=== PATIENT | female | born 1970 | race Caucasian/White ===

== ENCOUNTER 2019-09-20 15:05 | Inpatient (IN) | payer BC, OTHER ==
--- NOTE | 2019-09-20 15:17 | PDOC ---
Rapid Medical Evaluation Time Seen by Provider: 09/20/19 15:12 Medical Evaluation: 09/20/19 15:13 Pt presents to the ER for 10 days of heavy vaginal bleeding and pain. She states she is changing about a pad an hour. Also reports dyspnea on exertion and feeling faint. Exam: Pale conjunctiva. AAOx3 Orders: Labs, IV, EKG Pt to proceed the ER for further evaluation Discharge Disposition - Diagnosis Vaginal bleeding - Referrals - Patient Instructions - Post Discharge Activity
--- NOTE | 2019-09-20 16:03 | PDOC ---
History of Present Illness - General Chief Complaint: Vaginal Bleeding Stated Complaint: VAGINAL BLEEDING Time Seen by Provider: 09/20/19 15:12 History Source: Patient Exam Limitations: No Limitations - History of Present Illness Initial Comments: Kell is a 49 yo F who denies having any pmh who presents to the [facility] er with one month of vaginal bleeding which has now become stronger and she is saturating a pad every 2 hours. She did not mind the bleeding originally but now it has caused her to become extremely weak and her weakness is what prompted her to come to the ER to be evaluated. She also endorses some fullness in her lower abdomen. She reports that the reason she hasn't come to the ER is because she thought it was normal to bleed. The patient states she has not actually passed out or fell down but she feels like even walking 20 feet is tiresome and she will fall down. PCP: Dr. Ac PSH: Allergies: NKA, NKDA Social Hx: Denies smoking, drinking, or other substance usage Past History - Past Medical History Allergies/Adverse Reactions: Allergies Allergy/AdvReac Type Severity Reaction Status Date / Time No Known Allergies Allergy Verified 09/20/19 15:15 Home Medications: Ambulatory Orders NK [No Known Home Medication] 09/20/19 COPD: No - Immunization History Immunization Up to Date: Yes - Psycho Social/Smoking Cessation Hx Smoking History: Never smoked Information on smoking cessation initiated: No Hx Alcohol Use: No Drug/Substance Use Hx: No Review of Systems - Review of Systems Able to Perform ROS?: Yes Comments:: CONSTITUTIONAL: Present: fatigue Absent: fever, no chills EYES: Absent: visual changes ENT: Absent: ear pain, no sore throat CARDIOVASCULAR: Absent: chest pain, no palpitations RESPIRATORY: Absent: cough, no SOB GI: Present: Abdominal pain Absent: no nausea, no vomiting, no constipation, no diarrhea GENITOURINARY: Present: Vaginal bleeding Absent: dysuria, no frequency, no hematuria MUSKULOSKELETAL: Absent: back pain, no arthralgia, no myalgia SKIN: Absent: rash NEURO: Absent: headache *Physical Exam - Vital Signs Last Vital Signs Temp Pulse Resp BP Pulse Ox 97.7 F 103 H 20 166/77 98 09/20/19 15:11 09/20/19 15:11 09/20/19 15:11 09/20/19 15:11 09/20/19 15:11 - Physical Exam PELVIC: There is a significant amount of blood in the vaginal vault mixed with clots. there is active bleeding. There is no CMT or adnexal tenderness. GENERAL: Pale appearing, fatigued. Well-nourished. No apparent distress. HEENT: Normocephalic, atraumatic. PERRL, EOM intact. CARDIOVASCULAR: Tachycardic rate. Normal S1, S2. Regular rhythm. PULMONARY: No evidence of respiratory distress. Lungs clear to auscultation bilaterally. No wheezing, rales or rhonchi. ABDOMEN: Soft, non-distended, non-tender. EXTREMITIES: Normal ROM in all four extremities. No gross deformities. SKIN: Warm, dry. No rash NEUROLOGICAL: No focal neurological deficits. ED Treatment Course - LABORATORY CBC & Chemistry Diagram: 09/20/19 16:10 09/20/19 16:10 - RADIOLOGY Radiology Studies Ordered: Category Date Time Status TRANSVAGINAL ULTRASOUND US [US] Stat Ultrasound 09/20/19 16:01 Ordered Medical Decision Making - Medical Decision Making Kell is a 49 yo F who denies having any pmh who presents to the [facility] er with one month of vaginal bleeding which has now become stronger and she is saturating a pad every 2 hours. She did not mind the bleeding originally but now it has caused her to become extremely weak and her weakness is what prompted her to come to the ER to be evaluated. She also endorses some fullness in her lower abdomen. She reports that the reason she hasn't come to the ER is because she thought it was normal to bleed. The patient states she has not actually passed out or fell down but she feels like even walking 20 feet is tiresome and she will fall down. Vital Signs Temp Pulse Resp BP Pulse Ox 97.7 F 103 H 20 166/77 98 09/20/19 15:11 09/20/19 15:11 09/20/19 15:11 09/20/19 15:11 09/20/19 15:11 DDx IBNLT: , anemia, endometrial cancer, fibroids, polyps, endometriosis, adenomyosis Plan: Labs, Urine, TVUS, re-assess. Labs: Patient is symptomatically anemic and bleeding profusely. Hb back at 8. Will start transfusing 2 units in the ED Plan: Consult OB and admit to hospital for symptomatic anemia. Disposition: Med/surg Discharge - Discharge Information Problems reviewed: Yes Clinical Impression/Diagnosis: Vaginal bleeding, Symptomatic anemia, Anemia requiring transfusions Condition: Guarded - Admission Yes - Follow up/Referral - Patient Discharge Instructions - Post Discharge Activity
[2019-09-20 16:41] LABS: BASO % 0.5 % (0-2.0); EOS % 0.5 % (0-4.5); HEMATOCRIT 25.1 % (32.4-45.2); LYMPH % 15.5 % (8-40); MCHC 31.8 g/dl (32.0-36.0); MEAN CELL VOLUME 78.6 fl (80-96); MEAN PLT VOLUME 7.3 fl (7.5-11.1); MONO % 5.5 % (3.8-10.2); PLATELET COUNT 418 K/MM3 (134-434); RDW 17.4 % (11.6-15.6); WHITE BLOOD COUNT 7.2 K/mm3 (4.0-10.0)
[2019-09-20 17:08] LABS: ALBUMIN 4.2 g/dl (3.4-5.0); BILIRUBIN,TOTAL 0.4 mg/dL (0.2-1); BLOOD UREA NITROGEN 14.6 mg/dL (7-18); CALCIUM 9.4 mg/dL (8.5-10.1); CREATININE 0.8 mg/dL (0.55-1.3); POTASSIUM 3.7 mmol/L (3.5-5.1); TOT PROT 7.8 g/dl (6.4-8.2)
[2019-09-20 17:13] LABS: INR 0.95 (0.83-1.09); PROTHROMBIN TIME (PATIENT) 11.2 SEC (9.7-13.0)
--- NOTE | 2019-09-20 17:55 | PDOC ---
Attending Attestation - Resident Resident Name: Jamal Dobbs - ED Attending Attestation I have performed the following: I have examined & evaluated the patient, The case was reviewed & discussed with the resident, I agree w/resident's findings & plan, Exceptions are as noted - HPI HPI: 09/20/19 17:52 49-year-old female no past medical history here today complaining of dysfunctional and heavy vaginal bleeding for 4 weeks. Patient states that she is now soaking several pads a day does complain of feeling lightheaded and dizzy. Does complain of lower abdominal cramping. States that prior to that she had not had a period for 4 months unsure if she may be perimenopausal denies any known history of fibroids or other medical problems no previous history of anemia does not take any current blood thinners states she is soaking pads with clots currently patient has an appointment scheduled for Friday with Dr. Sandy - Physicial Exam PE: 09/20/19 17:53 Patient is awake alert no acute distress lungs are clear bilaterally heart is noted to be tachycardic no murmurs rubs or gallops abdomen is soft there is mild suprapubic tenderness on exam. External vaginal exam does demonstrate heavy vaginal bleeding. Remedies are without edema no calf tenderness patient is awake alert and oriented x3 - Medical Decision Making 09/20/19 17:53 Anovulatory cycle uterine mass or uterine cancer is also considered 49-year-old female history of 4 weeks vaginal bleeding differential includes perimenopausal dysfunctional bleeding. Plan transvaginal ultrasound basic labs CBC type and screen. Due to the amount of bleeding and the fact that the patient is symptomatic with anemia she would likely require transfusion. Will discuss with Dr. Sandy page has been placed awaiting callback patient will require admission 09/20/19 19:24 dr mak called [phone] 09/20/19 19:28 Heart Score/ECG Review #1 General ECG Interpretation: Sinus Rhythm, Normal Rate (98), Normal Intervals, No acute ischemic changes
[2019-09-20 17:56] LABS: EPI CELLS 0.8 /HPF (0-5/HPF); HYALINE CASTS 7 /lpf (0-8); URINE APPEARANCE CLOUDY; URINE BACTERIA 1.4 /hpf (NEGATIVE); URINE BILIRUBIN NEGATIVE (NEGATIVE); URINE COLOR ORANGE; URINE GLUCOSE (UA) NEGATIVE (NEGATIVE); URINE KETONE NEGATIVE (NEGATIVE); URINE LEUK ESTERASE NEGATIVE (NEGATIVE); URINE NITRITE NEGATIVE (NEGATIVE); URINE PROTEIN 1+ (NEGATIVE); URINE RBC 740 /hpf (0-4); URINE UROBILINOGEN 0.2 mg/dL (0.2-1.0); URINE WBC 1 /hpf (0-5)
[2019-09-20] MEDS: DEXTROSE 5%-0.45% SALINE 1,000 ML IV SCH (20:30)
--- NOTE | 2019-09-21 05:45 | HP ---
Admitting History and Physical - Primary Care Physician PCP: Odessa Romano - Admission Chief Complaint: Vaginal Bleed, Lightheadedness History of Present Illness: This is a 49 y/o woman with no PMHx. Who presents to the ED with one month of vaginal bleeding which has now become heavier and is using one pad/2 hours with half-dollar size clots. Patient is Khmer speaking Primordial used #[id number]. Patient reports having a heavy period last April then her period returned on August 18 intermittently bleeding using 1-2 pads per hour with clots. Patient states" the bleeding was so heavy that she had to use [employer] towels for absorption". She reports having abdominal cramping on the first day, then mild cramping. Patient reports that her periods are usually heavy lasting 3-5 days. Patient reports that her last Pap was 13 years ago. She states" everything was alright, so I did not feel the need to go". She does report having a Mammogram last month- nl, per patient. Patient denies family hx of cervical, ovarian or endometrial Ca. Patient reports having 2 without complications, 1 miscarriage- d/c. Denies AB. Patient denies fever, chills, cough, MOSER, SOB, CP, palpitations, N/V/D, constipation, melena, hematochezia, hematuria, dysuria History Source: Patient, Family Member Limitations to Obtaining History: Language Barrier (Khmer) - Past Medical History ...LMP: 06/13/19 - Past Surgical History Additional Past Surgical History: x2 D/C - Smoking History Smoking history: Never smoked - Alcohol/Substance Use Hx Alcohol Use: No History of Substance Use: reports: None - Social History Usual Living Arrangement: Yes: With Spouse, With Child Do you think of yourself as: Straight/Heterosexual ADL: Independent History of Recent Travel: No Home Medications - Allergies Allergies/Adverse Reactions: Allergies Allergy/AdvReac Type Severity Reaction Status Date / Time No Known Allergies Allergy Verified 09/20/19 15:15 - Home Medications Home Medications: Ambulatory Orders NK [No Known Home Medication] 09/20/19 Family Medical History Family History: Unremarkable Review of Systems - Review of Systems Constitutional: reports: Weakness Eyes: reports: No Symptoms HENT: reports: No Symptoms Neck: reports: No Symptoms Cardiovascular: reports: No Symptoms Respiratory: reports: No Symptoms Gastrointestinal: reports: Abdominal Pain (cramping) Genitourinary: reports: Vaginal Bleeding Breasts: reports: No Symptoms Reported Musculoskeletal: reports: No Symptoms Integumentary: reports: No Symptoms Neurological: reports: Dizziness, Weakness Endocrine: reports: No Symptoms Hematology/Lymphatic: reports: No Symptoms Psychiatric: reports: No Symptoms Pain Intensity: 1 Physical Examination Vital Signs: Vital Signs Temperature 98.4 F 09/21/19 02:15 Pulse Rate 80 09/21/19 05:35 Respiratory Rate 17 09/21/19 05:35 Blood Pressure 138/80 09/21/19 05:35 O2 Sat by Pulse Oximetry (%) 100 09/21/19 05:35 Constitutional: Yes: Well Nourished, Anxious Eyes: Yes: WNL, Conjunctiva Clear (pale), EOM Intact HENT: Yes: WNL, Atraumatic, Normocephalic Neck: Yes: WNL, Supple, Trachea Midline Cardiovascular: Yes: Tachycardia, S1, S2 Respiratory: Yes: WNL, Regular, CTA Bilaterally Gastrointestinal: Yes: WNL, Normal Bowel Sounds, Soft ...Rectal Exam: Yes: Sphincter Tone Normal Renal/: Yes: Menses Present, Vaginal Bleeding (scant). No: Breast(s): Yes: WNL Musculoskeletal: Yes: WNL Extremities: Yes: WNL Edema: No Peripheral Pulses WNL: Yes Neurological: Yes: WNL, Alert, Oriented, Cran Nerves II-XII Intact ...Motor Strength: WNL Psychiatric: Yes: WNL, Alert, Oriented Labs: CBC, BMP 09/20/19 16:10 09/20/19 16:10 Laboratory Results - last 24 hr 09/20/19 09/20/19 09/20/19 16:00 16:00 16:10 WBC 7.2 RBC 3.20 L Hgb 8.0 L Hct 25.1 L MCV 78.6 L MCH 25.0 L MCHC 31.8 L RDW 17.4 H Plt Count 418 MPV 7.3 L Absolute Neuts (auto) 5.7 Neutrophils % 78.0 Lymphocytes % 15.5 Monocytes % 5.5 Eosinophils % 0.5 Basophils % 0.5 Nucleated RBC % 0 PT with INR INR Sodium Potassium Chloride Carbon Dioxide Anion Gap BUN Creatinine Est GFR (CKD-EPI)AfAm Est GFR (CKD-EPI)NonAf Random Glucose Calcium Total Bilirubin AST ALT Alkaline Phosphatase Total Protein Albumin Urine Color [place] Urine Appearance Cloudy Urine pH 5.0 Ur Specific [place] 1.011 Urine Protein 1+ H Urine Glucose (UA) Negative Urine Ketones Negative Urine Blood 3+ H Urine Nitrite Negative Urine Bilirubin Negative Urine Urobilinogen 0.2 Ur Leukocyte Esterase Negative Urine WBC (Auto) 1 Urine RBC (Auto) 740 Urine Casts (Auto) 7 U Epithel Cells (Auto) 0.8 Urine Bacteria (Auto) 1.4 Urine HCG, Qual Negative Blood Type Antibody Screen Crossmatch 09/20/19 09/20/19 09/20/19 16:10 16:10 16:10 WBC RBC Hgb Hct MCV MCH MCHC RDW Plt Count MPV Absolute Neuts (auto) Neutrophils % Lymphocytes % Monocytes % Eosinophils % Basophils % Nucleated RBC % PT with INR 11.20 INR 0.95 Sodium 141 Potassium 3.7 Chloride 106 Carbon Dioxide 25 Anion Gap 10 BUN 14.6 Creatinine 0.8 Est GFR (CKD-EPI)AfAm 101.75 Est GFR (CKD-EPI)NonAf 87.79 Random Glucose 99 Calcium 9.4 Total Bilirubin 0.4 AST 29 ALT 50 Alkaline Phosphatase 70 Total Protein 7.8 Albumin 4.2 Urine Color Urine Appearance Urine pH Ur Specific [place] Urine Protein Urine Glucose (UA) Urine Ketones Urine Blood Urine Nitrite Urine Bilirubin Urine Urobilinogen Ur Leukocyte Esterase Urine WBC (Auto) Urine RBC (Auto) Urine Casts (Auto) U Epithel Cells (Auto) Urine Bacteria (Auto) Urine HCG, Qual Blood Type A POSITIVE Antibody Screen Negative Crossmatch See Detail 09/20/19 09/20/19 09/21/19 18:00 18:00 05:57 WBC 6.2 RBC 3.88 Hgb 10.2 L Hct 30.5 L D MCV 78.7 L MCH 26.4 MCHC 33.5 RDW 17.0 H Plt Count 360 MPV 7.3 L Absolute Neuts (auto) 3.9 Neutrophils % 62.7 Lymphocytes % 24.6 D Monocytes % 11.3 H D Eosinophils % 0.7 Basophils % 0.7 Nucleated RBC % 0 PT with INR INR Sodium Potassium Chloride Carbon Dioxide Anion Gap BUN Creatinine Est GFR (CKD-EPI)AfAm Est GFR (CKD-EPI)NonAf Random Glucose Calcium Total Bilirubin AST ALT Alkaline Phosphatase Total Protein Albumin Urine Color Urine Appearance Urine pH Ur Specific [place] Urine Protein Urine Glucose (UA) Urine Ketones Urine Blood Urine Nitrite Urine Bilirubin Urine Urobilinogen Ur Leukocyte Esterase Urine WBC (Auto) Urine RBC (Auto) Urine Casts (Auto) U Epithel Cells (Auto) Urine Bacteria (Auto) Urine HCG, Qual Blood Type A POSITIVE Cancelled Antibody Screen Cancelled Crossmatch Intake & Output 09/18/19 09/19/19 09/20/19 09/21/19 23:59 23:59 23:59 23:59 Weight 63.503 kg Imaging - Results Chest X-ray: Image Reviewed Ultrasound: Report Reviewed, Image Reviewed EKG: Image Reviewed Problem List - Problems (1) Symptomatic anemia Assessment/Plan: Likely secondary to Menorrhagia Hgb 8 Per ED resident she had profuse vaginal bleeding during pelvic exam PRBCs infusing Monitor CBC Continue cardiac monitoring Will add on FE, TIBC and Ferritin to prior labs Code(s): D64.9 - ANEMIA, UNSPECIFIED (2) Vaginal bleeding Assessment/Plan: Appreciate RUGBY UNION 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 A malignancy cannot be excluded. Small left ovarian cyst. clinical correlation and f/u recommended PRBCs Monitor CBC Cardiac monitoring NPO IVF Bedrest Code(s): N93.9 - ABNORMAL UTERINE AND VAGINAL BLEEDING, UNSPECIFIED (3) Cervical mass Assessment/Plan: See above Code(s): N88.8 - OTHER SPECIFIED NONINFLAMMATORY DISORDERS OF CERVIX UTERI Assessment/Plan This is a 49 y/o woman with no PMHx. Admitted to Telemetry for Symptomatic Anemia, Menorrhagia, Cervical Mass for further evaluation of their emergent condition. Plan: See Problem List FEN D51/2NS@83ml/hr Replete lytes prn NPO DVT ppx OOB SCDs Hold ACs secondary to Vaginal Bleed/Anemia Dispo: Requires Inpatient Care Visit type - Emergency Visit Emergency Visit: Yes ED Registration Date: 09/20/19 Care time: The patient presented to the Emergency Department on the above date and was hospitalized for further evaluation of their emergent condition. - New Patient This patient is new to me today: Yes Date on this admission: 09/20/19 - Critical Care Critical Care patient: No
[2019-09-21 06:24] LABS: BASO % 0.7 % (0-2.0); EOS % 0.7 % (0-4.5); HEMATOCRIT 30.5 % (32.4-45.2); HEMOGLOBIN 10.2 GM/dL (10.7-15.3); LYMPH % 24.6 % (8-40); MCH 26.4 pg (25.7-33.7); MCHC 33.5 g/dl (32.0-36.0); MEAN CELL VOLUME 78.7 fl (80-96); MEAN PLT VOLUME 7.3 fl (7.5-11.1); MONO % 11.3 % (3.8-10.2); NEUT % 62.7 % (42.8-82.8); PLATELET COUNT 360 K/MM3 (134-434); RBC 3.88 M/mm3 (3.60-5.2); WHITE BLOOD COUNT 6.2 K/mm3 (4.0-10.0)
[2019-09-21 06:39] LABS: BLOOD UREA NITROGEN 13.4 mg/dL (7-18); CREATININE 0.7 mg/dL (0.55-1.3); POTASSIUM 3.8 mmol/L (3.5-5.1)
[2019-09-21] MEDS ORDERED: ACETAMINOPHEN 1000 MG/100 ML VIAL (NON FORMULARY) IVPB ONE (06:54)
[2019-09-21] MEDS ORDERED: ACETAMINOPHEN INJECTION 100 ML IVPB ONE (07:04)
--- NOTE | 2019-09-21 09:07 | EKG ---
Test Reason : Blood Pressure : / mmHG Vent. Rate : 098 BPM Atrial Rate : 098 BPM P-R Int : 164 ms QRS Dur : 088 ms QT Int : 366 ms P-R-T Axes : 053 -08 038 degrees QTc Int : 467 ms NORMAL SINUS RHYTHM MODERATE VOLTAGE CRITERIA FOR LVH, MAY BE NORMAL VARIANT BORDERLINE ECG NO PREVIOUS ECGS AVAILABLE Confirmed by Torey Munoz MD ([id number]) on 09/21/2019 9:06:54 AM Referred By: Confirmed By:Torey Munoz MD
--- NOTE | 2019-09-21 09:11 | PN ---
Progress Note (short form) - Note Progress Note: 49 yo lady admitted for symptomatic anemia and heavy vaginal bleeding ( of note hgb/htc 11.5.19 was 13.5/44.8 ) G3, P2 normal deliveries, one miscarriage, last PAP 13 yrs ago was normal periods have been regular until 4 months ago, when suddenly stopped, developed vaginal bleeding a month ago , getting progressively heavier with clots and lower abdominal cramps. received 2 units prbc overnight h/h much better CBC, BMP 09/21/19 05:57 09/21/19 05:57 s1s2 rrr lungs cta abd lower abdominal wall tenderness still with heavy vaginal bleeding 49 yo lady, otherwise healthy now with vaginal bleeding, symptomatic anemia, small fibroid and cervical mass possibly neoplasm. will order mri machine operator transplanter consult was requested pain control monitor h/h
[2019-09-21] MEDS ORDERED: IBUPROFEN 600 MG TABLET (FP) PO PRN (09:29)
[2019-09-21] MEDS: DEXTROSE 5%-0.45% SALINE 1,000 ML IV SCH (10:26)
[2019-09-21] MEDS ORDERED: IBUPROFEN 600 MG TABLET (FP) PO ONE (14:32)
[2019-09-21 19:09] VITALS: BMI 23.2
[2019-09-22 10:59] LABS: BASO % 0.8 % (0-2.0); EOS % 2.8 % (0-4.5); HEMATOCRIT 29.6 % (32.4-45.2); HEMOGLOBIN 9.9 GM/dL (10.7-15.3); LYMPH % 24.9 % (8-40); MCH 26.7 pg (25.7-33.7); MCHC 33.3 g/dl (32.0-36.0); MEAN CELL VOLUME 80.2 fl (80-96); MEAN PLT VOLUME 7.2 fl (7.5-11.1); MONO % 10.9 % (3.8-10.2); NEUT % 60.6 % (42.8-82.8); PLATELET COUNT 362 K/MM3 (134-434); RDW 17.4 % (11.6-15.6); WHITE BLOOD COUNT 5.3 K/mm3 (4.0-10.0)
[2019-09-22 11:26] LABS: ALBUMIN 3.7 g/dl (3.4-5.0); BILIRUBIN,TOTAL 0.6 mg/dL (0.2-1); BLOOD UREA NITROGEN 17.2 mg/dL (7-18); CALCIUM 9.1 mg/dL (8.5-10.1); CREATININE 0.9 mg/dL (0.55-1.3)
--- NOTE | 2019-09-22 12:07 | CON.OBG ---
Consult Consult Specialty:: heel splitter Referred by:: Dr. Jang Reason for Consultation:: Menorrhagia, severe. Iron deficiency anemia; transfused 2 units in ER - History of Present Illness Chief Complaint: Continous bleeding. Fibroids. History of Present Illness: Progressively worse. Patient is Para 2 w 2 NVDs. 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: No: Alzheimer's, CVA, Dementia, Migraine, Multiple Sclerosis, Peripheral Neuropathy, Parkinson's, Seizure, Syncope, TIA, Vertigo, Other Cardio/Vascular: No: AFIB, Aneurysm, Aortic Insufficiency, Aortic Stenosis, CAD , CHF, Deep Vein Thrombosis, HTN, Hyperlipdemia, MA, Mitral Insufficiency, Mitral Stenosis, Murmur, Pulmonary Hypertension, Other Pulmonary: No: Asthma, Bronchitis, Cancer, COPD, O2 Dependent, Pneumonia, Previously Intubated, Pulmonary Embolus, Pulmonary Fibrosis, Sleep Apnea, Other Gastrointestinal: No: Ascites, Cancer, Constipation, Crohn's Disease, Diverticulitis, Diverticulosis, Esophageal Varices, Gastritis, GERD, GI Bleed, Hemorrhoids, Hiatal Hernia, Inflamatory Bowel Disease, Irritable Bowel Disease, Pancreatitis, Peptic Ulcer Disease, Ulcerative Colitis, Other Hepatobiliary: No: Cirrhosis, Cholelithiasis, Cholecystitis, Choledocholithiasis , Hepatitis A, Hepatitis B, Hepatitis C, Other Renal/: No: Renal Failure, Renal Inusuff, BPH, Cancer, Hematuria, Hemodialysis , Neurogenic Bladder, Renal Calculi, UTI, Other Reproductive: No: Ectopic , Endometriosis, Fibroids, PID, Polycystic Ovary Syndrome, Postmenopausal, Other ...LMP: 08/22/19 ...: No Heme/Onc: No: Anemia, B12 Deficiency, Bleeding Disorder, Cancer, Current Chemotherapy, Current Radiation Therapy, Hemochromatosis, Hypercoaguable State, Myeloproliferative Synd, Sickle Cell Disease, Sickle Cell Trait, Thrombocytopenia, Other Psych: No: Addictions, Anxiety, Bipolar, Depression, Panic, Psychosis, Schizophrenia, Other Musculoskeletal: No: Bursitis, Chronic low back pain, Hemiparesis, Hemiplegia, Osteoarthritis, Paraplegia, Other Rheumatology: No: Fibromyalgia, Gout, Lupus, Rheumatoid Arthritis, Sarcoidosis, Vasculitis, Other ENT: No: Allergic Rhinitis, Sinusitis, Other Endocrine: No: [place]'s Disease, Hany's Disease, Diabetes Insipidus, Diabetes Mellitus, Hyperparathyroidism, Hyperthyroidism, Hypothyroidism, Osteopenia, SIADH, Other Dermatology: No: Basal Cell, Cellulitis, Eczema, Melanoma, Psoriasis, Squamous Cell, Other - Past Surgical History Past Surgical History: Yes: None - Alcohol/Substance Use Hx Alcohol Use: No History of Substance Use: reports: None - Smoking History Smoking history: Never smoked Have you smoked in the past 12 months: No - Social History ADL: Independent History of Recent Travel: No Home Medications - Allergies Allergies/Adverse Reactions: Allergies Allergy/AdvReac Type Severity Reaction Status Date / Time No Known Allergies Allergy Verified 09/20/19 15:15 - Home Medications Home Medications: Ambulatory Orders NK [No Known Home Medication] 09/20/19 Review of Systems - Review of Systems Constitutional: denies: No Symptoms, Chills, Diaphoresis, Fever, Lethargy, Loss of Appetite, Malaise, Night Sweats, Unintentional Wgt. Loss, Weakness, Other HENT: denies: No Symptoms, Difficult Swallowing, Ear Discharge, Ear Pain, Epistaxis, Gingival Bleeding, Hearing Loss, Mouth Swelling, Nasal Congestion, Ocular Prosthesis, Throat Pain, Toothache, Ringing in Ears, Other Neck: denies: No Symptoms, Decreased ROM, Lumps, Pain on Movement, Stiffness, Swollen Glands, Tenderness, Other Cardiovascular: denies: No Symptoms, Chest Pain, Edema, Palpitations, Shortness of Breath, Other Respiratory: denies: No Symptoms, Cough, Exercise Intolerance, Hemoptysis, Orthopnea, PND, Snoring, SOB, SOB on Exertion, Wheezing, Other Gastrointestinal: denies: No Symptoms, Abdominal Pain, Bloating, Constipation, Diarrhea, Dysphagia, Indigestion, Melena, Nausea, Rectal Bleeding, Vomiting, Vomiting Blood, Other Genitourinary: denies: No Symptoms, Burning, Discharge, Dysuria, Flank Pain, Frequency, Hematuria, Incontinence, Lesions, Menses, Pain, Testicular Mass, Testicular Pain, Testicular Swelling, Urgency, Vaginal Bleeding, Other Breasts: denies: No Symptoms Reported, See HPI, Breast Implants, Discharge from Nipple, Lumps, Pain, Skin Changes, Other Musculoskeletal: denies: No Symptoms, Back Pain, Crepitus, Decreased ROM, Extremity Pain, Joint Pain, Joint Swelling, Muscle Pain, Muscle Cramps, Muscle Weakness, Other Neurological: denies: No Symptoms, Change in LOC, Change in Speech, Confusion, Dizziness, Headache, Incoordination, Numbness, Parasthesia, Pre-Existing Deficit , Seizure, Syncope, Tremors, Unsteady Gait, Weakness, Other Endocrine: denies: No Symptoms, Excessive Sweating, Flushing, Increased Hunger, Increased Thirst, Intolerance to Cold, Intolerance to Heat, Unexplained Weight Gain, Unexplained Weight Loss, Other Hematology/Lymphatic: denies: No Symptoms, Easily Bruised, Excessive Bleeding, Swollen Glands, Other Psychiatric: denies: No Symptoms, Altered Sleep Pattern, Anxiety, Depression, Hallucinations, Panic, Paranoia, Suicidal, Other Physical Exam-MUSEUM GUIDE Vital Signs: Vital Signs Temperature 97.9 F 09/22/19 09:15 Pulse Rate 71 09/22/19 09:15 Respiratory Rate 18 09/22/19 09:15 Blood Pressure 112/75 09/22/19 09:15 O2 Sat by Pulse Oximetry (%) 98 09/21/19 21:00 Constitutional: Yes: Well Nourished, No Distress, Calm Eyes: Yes: WNL, Conjunctiva Clear, EOM Intact HENT: Yes: WNL, Atraumatic, Normocephalic Neck: Yes: WNL, Supple, Trachea Midline Cardiovascular: Yes: WNL, Regular Rate and Rhythm Respiratory: Yes: WNL, Regular, CTA Bilaterally Gastrointestinal: Yes: WNL ...Rectal Exam: Yes: WNL Renal/: Yes: WNL Vaginal Exam: Yes: Bleeding Cervix: Yes: Bleeding, Other ("Aborting" myoma vs. 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 Vaginal myomectomy, D and C, hysteroscopy recommended All discussed via interpretor.
--- NOTE | 2019-09-22 13:27 | PN ---
Progress Note (short form) - Note Progress Note: CBC, BMP 09/22/19 10:20 09/22/19 10:20 Vital Signs Period Temp Pulse Resp BP Sys/[place] Pulse Ox Last 24 Hr 97.8 F-98.7 F 67-80 18-18 109-135/64-79 97-98 s1s2 rrr lungs cta abd lower abdominal wall tenderness still with some vaginal bleeding 49 yo lady, otherwise healthy now with vaginal bleeding, symptomatic anemia, small fibroid and cervical mass possibly neoplasm/fibroid. quality systems manager consult appreciated npo past midnight for myomectomy/ d+c/ hysteroscopy no medical contraindication to procedure
[2019-09-23] MEDS ORDERED: SODIUM CHLORIDE 0.45% 1,000 ML IV SCH ×2 (08:00→13:03)
--- NOTE | 2019-09-23 08:17 | PN ---
Progress Note (short form) - Note Progress Note: CBC, BMP CBC, BMP 09/22/19 10:20 09/22/19 10:20 Vital Signs Period Temp Pulse Resp BP Sys/Eagle Pulse Ox Last 24 Hr 97.7 F-98.7 F 71-80 18-18 108-128/59-79 98 s1s2 rrr lungs cta abd lower abdominal tenderness, no rebound, no guarding, +bs no edema aaox3 still with some vaginal bleeding 49 yo lady, otherwise healthy now with vaginal bleeding, symptomatic anemia, small fibroid and cervical mass possibly neoplasm/fibroid. 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
[2019-09-23 09:15] LABS: BASO % 0.7 % (0-2.0); HEMATOCRIT 28.9 % (32.4-45.2); HEMOGLOBIN 9.7 GM/dL (10.7-15.3); LYMPH % 19.9 % (8-40); MCH 26.9 pg (25.7-33.7); MCHC 33.6 g/dl (32.0-36.0); MEAN CELL VOLUME 80.1 fl (80-96); MEAN PLT VOLUME 7.5 fl (7.5-11.1); NEUT % 66.4 % (42.8-82.8); PLATELET COUNT 362 K/MM3 (134-434); RBC 3.61 M/mm3 (3.60-5.2); RDW 17.8 % (11.6-15.6); WHITE BLOOD COUNT 6.8 K/mm3 (4.0-10.0)
[2019-09-23 09:36] LABS: ALBUMIN 3.8 g/dl (3.4-5.0); BILIRUBIN,TOTAL 0.5 mg/dL (0.2-1); BLOOD UREA NITROGEN 19.7 mg/dL (7-18); CALCIUM 9.2 mg/dL (8.5-10.1); CREATININE 0.8 mg/dL (0.55-1.3); POTASSIUM 3.8 mmol/L (3.5-5.1)
[2019-09-23] MEDS ORDERED: ACETAMINOPHEN INJECTION 100 ML IVPB ONE (11:11)
[2019-09-23] MEDS ORDERED: SUCCINYLCHOLINE CHLORIDE 200 MG/10 ML SYRINGE ONE (11:14)
--- NOTE | 2019-09-23 11:14 | PN ---
Progress Note (short form) - Note Progress Note: Patient and I discussed the procedure via the interpretor. Vaginal myomectomy, hysteroscopy and D&C will be performed Pt. understands the risks, poss complications and consents to the surgery. Postop instructions given.
[2019-09-23] MEDS ORDERED: PROPOFOL 20 ML ONE ×2 (11:15)
[2019-09-23] MEDS ORDERED: MIDAZOLAM HCL 2 MG/2 ML SINGLE DOSE VIAL ONE ×2 (11:16)
[2019-09-23] MEDS ORDERED: DEXAMETHASONE SOD PHOSPHATE 4 MG/1 ML VIAL ONE ×2 (11:16)
[2019-09-23] MEDS ORDERED: KETOROLAC TROMETHAMINE 30 MG/1 ML VIAL ONE (11:17)
[2019-09-23] MEDS ORDERED: ceFAZolin SODIUM 1 GM VIAL IVPB ONE (11:30)
[2019-09-23] MEDS ORDERED: ceFAZolin SODIUM 1 GM VIAL ONE (11:42)
[2019-09-23] MEDS ORDERED: oxyCODONE HCL 5 MG TABLET PO PRN ×2 (13:00→13:03)
[2019-09-23] MEDS ORDERED: LACTATED RINGERS SOLUTION 1,000 ML IV SCH (14:45)
--- NOTE | 2019-09-23 16:11 | DS ---
Physical Examination Vital Signs: Vital Signs Temperature 98.2 F 09/23/19 13:30 Pulse Rate 64 09/23/19 13:30 Respiratory Rate 20 09/23/19 13:30 Blood Pressure 129/65 09/23/19 13:30 O2 Sat by Pulse Oximetry (%) 94 L 09/23/19 13:30 Constitutional: Yes: Well Nourished, Calm Eyes: Yes: EOM Intact HENT: Yes: Normocephalic Neck: Yes: Trachea Midline Cardiovascular: Yes: Regular Rate and Rhythm Respiratory: Yes: CTA Bilaterally Gastrointestinal: Yes: Normal Bowel Sounds, Soft Edema: No Labs: CBC, BMP 09/23/19 08:13 09/23/19 08:13 Discharge Summary Problems reviewed: Yes Reason For Visit: TRANSFUSION DEPENDENT ANEMIA VAGINAL BLEEDING Current Active Problems Anemia requiring transfusions (Acute) Cervical mass (Acute) Symptomatic anemia (Acute) Vaginal bleeding (Acute) Procedures: Principal: myomectomy/ d+c/ hysteroscopy 09.23.19 Other Procedures: 2 untis PRBC transfusion Hospital Course: 49 yo lady, otherwise healthy now with vaginal bleeding, symptomatic anemia, small fibroid and cervical mass possibly neoplasm/fibroid. received 2 untis of PRBC for acute blood loss anemia underwent myomectomy/ d+c/ hysteroscopy today-tolerated procedure well no medical contraindication to discharge, eating, voiding freely follow up as outpt Condition: Guarded - Instructions Diet, Activity, Other Instructions: Dr. Bunn PEDIATRIC CLINICAL DIETICIAN discharge instructions Physical activity: Resume your normal everyday activity as tolerated no heavy lifting or exercise until seen by your surgeon. You may walk unlimited amounts and climb stairs. You may resume driving the car when you feel safe and comfortable behind the wheel and are no longer taking narcotic pain medications. Wound care: If you have a bandage, leave it on, and keep dry for 48 hours. After that time discard the outer bandage. If they are tapes on the skin under the outer of bandage leave them in place. They will peel off in the next 7 to 10 days. Do Not Peel them off. If there are tapes present on the skin, you may shower over them. Diet: There are no dietary restrictions. Eat healthy, high-fiber foods. Drink 6 to 8 glasses of liquid each day. This will assist in keeping your bowels are regular. Pain management: You may take Tylenol or acetaminophen or Ibuprofen (for example, Motrin, Advil etc.) every 6 hours as needed for pain. You received both Tylenol and Toradol ( a type of Ibuprofen) in the operating room at 11Am on 09/23. Do not take additional Tylenol or Ibuprofen prior to 5pm on 09/23. Call Dr. Bunn for any of the following: * Severe pain not relieved by medication * Fever of 101 or higher * Excessive bleeding or drainage on dressing Call the office at [phone] for an appointment in seven to 10 days. Referrals: Odessa Romano MD [Primary Care Provider] - Can Bunn MD [Staff Physician] - Disposition: HOME - Home Medications Comprehensive Discharge Medication List: Ambulatory Orders Ibuprofen [Ibu] 600 mg PO Q6H PRN #20 tablet MDD 4 09/23/19 Oxycodone HCl/Acetaminophen [Percocet 5-325 mg Tablet] 1 tab PO Q6H #10 tablet MDD 4 09/23/19
[2019-09-23 16:18] VITALS: BP 148/74; PULSE 78; TEMP 98.7
[2019-09-23] MEDS ORDERED: IBUPROFEN 600 MG TABLET (FP) PO PRN ×2 (17:00)
[2019-09-23] MEDS ORDERED: ACETAMINOPHEN 325 MG TABLET (FP) PO PRN ×2 (17:30)
--- NOTE | 2019-09-23 21:14 | OP ---
DATE OF OPERATION: DATE OF DICTATION: 09/23/2019 PREOPERATIVE DIAGNOSES: 1. Severe menorrhagia with iron-deficiency anemia and recent transfusion. 2. Uterine leiomyomata. 3. Cervical mass. POSTOPERATIVE DIAGNOSES: 1. Severe menorrhagia with iron-deficiency anemia and recent transfusion. 2. Uterine leiomyomata. 3. Cervical mass. PROCEDURES: 1. Resection of cervical mass, presumably myoma. 2. Transvaginal removal of endometrial myoma. 3. Hysteroscopy, dilation, curettage. SURGEON: Bernadine Bunn MD ANESTHESIOLOGIST: Thompson Cochran MD ANESTHESIA: General with LMA. PROCEDURE AND FINDINGS: Under light general anesthesia in dorsal lithotomy position, patient was prepped and draped in the normal fashion. Examination was carried out. Large, protruding, dark blood cervical mass was noted. Cervix was grasped with tenaculum, placed under traction, and the stalk of the mass was identified. It was partly coagulated and then divided with Soto scissors. Specimen was sent for pathology as a cervical mass/myoma. Hysteroscopy was carried out, but it was mostly obscured with bleeding. Patient was still bleeding actively coming to the operating room. Endocervix was evaluated, and there was no bleeding from the resected mass. Sharp curettage was carried out. Another submucosal myoma was identified and was scooped with the curette. Second, much smaller myoma was sent for pathology as well. Moderate endometrial curettings were obtained. The curettings constitute specimen number 3. Bleeding was under complete control at the end of the surgery. Patient was awakened and transferred to PACU in stable condition. Blood loss during the surgery was less than 10%. BERNADINE BUNN MD [id number]
--- NOTE | 2019-09-27 17:53 | PATH ---
Surgical Pathology Report Patient Name: GURVINDER ROMERO [facility]. Rec. #: [id number] /Age/Gender: 1970 (Age: 49) / F Account: [id number] Location: EMERGENCY ROOM Taken: 09/23/2019 Received: 09/23/2019 Reported: 09/27/2019 Physicians: Can Bunn MD Specimen(s) Received A: CERVICAL MYOMA B: ENDOMETRIAL MYOMA C: ENDOMETRIAL CURETTINGS Clinical History Menorrhagia, cervical mass Final Diagnosis A. CERVICAL MYOMA, RESECTION: 21 G, LEIOMYOMA WITH FOCAL HEMORRHAGE. B. ENDOMETRIAL MYOMA, EXCISION: 1 G, LEIOMYOMA, SUBMUCOSAL. C. ENDOMETRIAL CURETTINGS, DILATION AND CURETTAGE: POLYPOID FRAGMENTS OF PROLIFERATIVE ENDOMETRIUM AND BENIGN CERVICAL EPITHELIUM. Electronically Signed Adriana Godwin M.D. Gross Description A. Received in formalin labeled "cervical myoma," is a 21 g, 3.5 x 3.5 x 2.7 cm rubbery mass. The outer surface is red-brown and smooth. Sectioning reveals kelly-red, focally dusky parenchyma. Candy Packer sections are submitted in 4 cassettes. B. Received in formalin labeled "endometrial myoma," is a 1 g, 1.3 x 0.8 x 0.8 cm kelly, rubbery mass. The specimen is trisected and entirely submitted in one cassette. C. Received in formalin labeled "endometrial curettings," is a 2.1 x 1.5 x 0.3 cm aggregate of red-brown soft tissue fragments. The formalin is filtered and the specimen is entirely submitted in one cassette. [id number]
== END 2019-09-23 17:16 | disposition home or self-care (01) | DRG 513 ==
LOC: JER 15:05 → JERBED 17:48 → J5S 09-21 17:22
PROVIDERS: ADMIT Internal Medicine; ATTEND Internal Medicine
PROC: 30233N1 Transfusion of Nonautologous Red Blood Cells into Peripheral Vein, Percutaneous Approach (ICD-10-PCS; 2019-09-20)
PROC: 0UBC8ZZ Excision of Cervix, Via Natural or Artificial Opening Endoscopic (ICD-10-PCS; 2019-09-23)
PROC: 0UB98ZZ Excision of Uterus, Via Natural or Artificial Opening Endoscopic (ICD-10-PCS; 2019-09-23)
PROC: 0UDB8ZZ Extraction of Endometrium, Via Natural or Artificial Opening Endoscopic (ICD-10-PCS; principal; 2019-09-23 12:00)
DX: N92.0 Excessive and frequent menstruation with regular cycle (principal); N88.9 Noninflammatory disorder of cervix uteri, unspecified; N83.202 Unspecified ovarian cyst, left side; D25.9 Leiomyoma of uterus, unspecified; D50.9 Iron deficiency anemia, unspecified; D62 Acute posthemorrhagic anemia
CPT/HCPCS: 36415; 36430; 36511; 71045-TC-FY; 76830-TC; 80048; 80053; 81003; 82728; 83540; 83550; 84703; 85025; 85610; 86850; 86900; 86901; 86922; 87086; 88305-TC; 93005; 93010; 94760; 99285-25; J0131; P9038; P9058

== ENCOUNTER 2021-02-14 04:25 | Day surgery (SDC) | payer OTHER ==
[2021-02-13 10:00] VITALS: BMI 26.5
[2021-02-14] MEDS ORDERED: BUPIVACAINE HCL 100 ML ONE (11:59)
[2021-02-14] MEDS ORDERED: BUPIVACAINE LIPOSOME/PF (EXPAREL) 266 MG/20 ML VIAL ONE (11:59)
[2021-02-14] MEDS ORDERED: MIDAZOLAM HCL 2 MG/2 ML SINGLE DOSE VIAL ONE ×2 (12:02)
[2021-02-14] MEDS ORDERED: PROPOFOL 20 ML ONE ×2 (12:54→15:23)
[2021-02-14] MEDS ORDERED: fentaNYL CITRATE 250 MCG/5 ML VIAL ONE (12:54)
[2021-02-14] MEDS ORDERED: ROCURONIUM BROMIDE 50 MG/5 ML SYRINGE ONE ×2 (12:54→14:21)
[2021-02-14] MEDS ORDERED: ceFAZolin SODIUM 1 GM VIAL IVPB ONE (13:12)
[2021-02-14] MEDS ORDERED: NEOSTIGMINE METHYLSULFATE 0.5 MG/ML - 10 ML MDV ONE (15:26)
[2021-02-14] MEDS ORDERED: SIMETHICONE 80 MG TAB.CHEW (FP) PO PRN (15:37)
[2021-02-14] MEDS ORDERED: ONDANSETRON 4 MG/2 ML VIAL IVPUSH PRN (15:37)
[2021-02-14] MEDS ORDERED: KETOROLAC TROMETHAMINE 30 MG/1 ML VIAL IVPUSH PRN ×3 (15:37→15:57)
[2021-02-14] MEDS ORDERED: oxyCODONE HCL 5 MG TABLET PO PRN ×3 (15:37→16:03)
[2021-02-14] MEDS ORDERED: DOCUSATE SODIUM 100 MG CAPSULE (FP) PO PRN (15:37)
[2021-02-14] MEDS ORDERED: BISACODYL 5 MG TABLET.DR (FP) PO PRN (15:37)
[2021-02-14] MEDS ORDERED: ACETAMINOPHEN 1000 MG/100 ML VIAL (NON FORMULARY) IVPB PRN ×2 (15:37→22:00)
[2021-02-14] MEDS ORDERED: SODIUM CHLORIDE 1,000 ML IV SCH (15:45)
[2021-02-14] MEDS ORDERED: PROMETHAZINE HCL 25 MG/1 ML VIAL IVPUSH PRN (16:03)
[2021-02-14] MEDS ORDERED: MEPERIDINE HCL CARPU-JECT 25 MG/1 ML DISP.SYRIN IVPUSH ONE (16:04)
[2021-02-14] MEDS ORDERED: MEPERIDINE HCL 25 MG/ML VIAL IVPUSH ONE (16:04)
[2021-02-14] MEDS ORDERED: MEPERIDINE HCL 25 MG/ML VIAL ONE (16:04)
[2021-02-14 19:18] LABS: HEMOGLOBIN 12.8 GM/dL (10.7-15.3); MCH 30.4 pg (25.7-33.7); MCHC 33.6 g/dl (32.0-36.0); MEAN CELL VOLUME 90.6 fl (80-96); MEAN PLT VOLUME 8.3 fl (7.5-11.1); PLATELET COUNT 312 K/MM3 (134-434); RBC 4.19 M/mm3 (3.60-5.2); RDW 12.2 % (11.6-15.6); WHITE BLOOD COUNT 18.5 K/mm3 (4.0-10.0)
[2021-02-14] MEDS ORDERED: ceFAZolin SODIUM 1 GM VIAL ONE (21:51)
[2021-02-14] MEDS ORDERED: DEXTROSE 5%-WATER - 50 ML IVPB ONE (21:51)
[2021-02-14] MEDS: oxyCODONE HCL 5 MG TABLET PO PRN (22:14)
[2021-02-14] MEDS: CEFAZOLIN 1 GM in DEXTROSE 5%-WATER - 1 GM/50 ML IVPB IVPB SCH (22:16)
[2021-02-15] MEDS ORDERED: ceFAZolin SODIUM 1 GM VIAL ONE (04:42)
[2021-02-15] MEDS ORDERED: DEXTROSE 5%-WATER - 50 ML IVPB ONE (04:43)
[2021-02-15] MEDS: oxyCODONE HCL 5 MG TABLET PO PRN (04:45)
[2021-02-15] MEDS: CEFAZOLIN 1 GM in DEXTROSE 5%-WATER - 1 GM/50 ML IVPB IVPB SCH (04:46)
[2021-02-15 08:20] LABS: HEMATOCRIT 33.8 % (32.4-45.2); HEMOGLOBIN 11.8 GM/dL (10.7-15.3); MCH 31.5 pg (25.7-33.7); MCHC 34.9 g/dl (32.0-36.0); MEAN CELL VOLUME 90.1 fl (80-96); MEAN PLT VOLUME 8.2 fl (7.5-11.1); PLATELET COUNT 275 K/MM3 (134-434); RBC 3.76 M/mm3 (3.60-5.2); RDW 12.4 % (11.6-15.6); WHITE BLOOD COUNT 10.9 K/mm3 (4.0-10.0)
[2021-02-15 08:55] LABS: BLOOD UREA NITROGEN 9.1 mg/dL (7-18); CALCIUM 8.1 mg/dL (8.5-10.1)
[2021-02-15 08:59] LABS: CREATININE 0.7 mg/dL (0.55-1.3)
[2021-02-15] MEDS ORDERED: ENOXAPARIN NA (PORCINE) 40 MG/0.4 ML DISP.SYRIN SQ SCH (10:00)
[2021-02-15 13:37] VITALS: BP 132/80; PULSE 87; TEMP 98.2
== END 2021-02-15 14:53 | disposition home or self-care (01) ==
LOC: JASUSAT 04:25 → J6S 19:36 → JASUSAT 02-15 14:53
PROVIDERS: ATTEND Specialist
PROC: 0UQF7ZZ Repair Cul-de-sac, Via Natural or Artificial Opening (ICD-10-PCS; 2021-02-14)
PROC: 0UT9FZZ Resection of Uterus, Via Natural or Artificial Opening With Percutaneous Endoscopic Assistance (ICD-10-PCS; principal; 2021-02-14 10:30)
PROC: 8E0W4CZ Robotic Assisted Procedure of Trunk Region, Percutaneous Endoscopic Approach (ICD-10-PCS; 2021-02-14 10:30)
DX: N92.0 Excessive and frequent menstruation with regular cycle (principal); D25.9 Leiomyoma of uterus, unspecified; N81.5 Vaginal enterocele; D64.9 Anemia, unspecified
CPT/HCPCS: 58552; S2900; 36415; 80048; 81025; 85027; 86850; 86900; 86901; 88302-TC; 88304-TC; 88307-TC; 94010; 94760; J0131